=== PATIENT | male | born 1940 | race Caucasian/White ===

== ENCOUNTER 2023-10-03 10:02 | Outpatient (CLI) | payer MEDICARE ==
[2023-10-03] MEDS ORDERED: iohexol 300mg/ml 100ml inj. ONE (11:34)
[2023-10-03 11:40] LABS: ALBUMIN 3.9 G/DL (3.4-5.0); ANION GAP 10 (8-16); BLOOD UREA NITROGEN 22 MG/DL (7-18); BUN/CREATININE RATIO 15.5 (10.0-20.0); CALCIUM 9.3 MG/DL (8.5-10.1); CHLORIDE 104 MMOL/L (99-107); CREATININE 1.42 MG/DL (0.60-1.10); GLUCOSE 147 MG/DL (70-104); POTASSIUM 4.4 MMOL/L (3.5-5.1); SODIUM 140 MMOL/L (135-145); TOTAL CARBON DIOXIDE 26.5 MMOL/L (24-32); eGFR 48 ML/MIN
== END 2023-10-03 23:59 | disposition home or self-care (01) ==
LOC: RAD 10:02
PROVIDERS: ATTEND Family Medicine
DX: N28.1 Cyst of kidney, acquired (principal); K40.90 Unilateral inguinal hernia, without obstruction or gangrene, not specified as recurrent; R31.0 Gross hematuria; Z91.81 History of falling
CPT/HCPCS: 36415; 74178; 80048; J3490; Q9967

== ENCOUNTER 2024-06-07 13:26 | Outpatient (CLI) | payer MEDICARE | END 2024-06-07 23:59 | disposition home or self-care (01) | LOC: RAD 13:26 | PROVIDERS: ATTEND Family Medicine | DX: I51.7 Cardiomegaly (principal); J98.11 Atelectasis; M47.816 Spondylosis without myelopathy or radiculopathy, lumbar region; K40.90 Unilateral inguinal hernia, without obstruction or gangrene, not specified as recurrent; N28.1 Cyst of kidney, acquired; K57.30 Diverticulosis of large intestine without perforation or abscess without bleeding; K44.9 Diaphragmatic hernia without obstruction or gangrene; I25.10 Atherosclerotic heart disease of native coronary artery without angina pectoris; R19.03 Right lower quadrant abdominal swelling, mass and lump | CPT/HCPCS: 74176 ==

== ENCOUNTER 2024-08-29 05:57 | Day surgery (SDC) | payer MEDICARE ==
[2024-08-28 14:34] LABS: BASOPHILS % (AUTO) 0.4 % (0-1); EOSINOPHILS # (AUTO) 0.1 X10'3 (0-0.9); EOSINOPHILS % (AUTO) 0.9 % (0-6); HEMATOCRIT 42.7 % (42.0-52.0); HEMOGLOBIN 14.2 g/dl (14.0-17.9); LYMPHOCYTES # (AUTO) 1.8 X10'3 (1.1-4.8); LYMPHOCYTES % (AUTO) 22.5 % (21-51); MEAN CORPUSCULAR HEMOGLOBIN 33.1 PG (27.0-31.0); MEAN CORPUSCULAR HGB CONC 33.3 g/dL (33.0-36.5); MEAN CORPUSCULAR VOLUME 99.3 FL (78-98); MEAN PLATELET VOLUME 9.1 FL (7.4-10.4); MONOCYTES # (AUTO) 0.5 X10'3 (0-0.9); MONOCYTES % (AUTO) 6.8 % (2-12); NEUTROPHILS # (AUTO) 5.5 X10'3 (1.8-7.7); NEUTROPHILS % (AUTO) 69.4 % (42-75); PLATELET COUNT 239 X10'3 (140-440); RED CELL DISTRIBUTION WIDTH 14.1 % (11.5-14.5)
[2024-08-28 14:43] LABS: ALBUMIN 3.8 G/DL (3.4-5.0); ANION GAP 7 (8-16); BLOOD UREA NITROGEN 33 MG/DL (7-18); BUN/CREATININE RATIO 20.8 (10.0-20.0); CALCIUM 8.9 MG/DL (8.5-10.1); CHLORIDE 104 MMOL/L (99-107); CREATININE 1.59 MG/DL (0.60-1.10); GLUCOSE 219 MG/DL (70-104); POTASSIUM 4.4 MMOL/L (3.5-5.1); SODIUM 141 MMOL/L (135-145); TOTAL CARBON DIOXIDE 29.9 MMOL/L (24-32); eGFR 42 ML/MIN
[2024-08-28 14:46] LABS: APTT 27 SECONDS (22-32); INR 1.1 INR; PROTHROMBIN TIME 11.5 SECONDS (9.0-12.0)
[~2024-08-29] VITALS: Ht 182.9 cm; Wt 100.9 kg
[2024-08-29] VITALS (11 sets, daily range): BP systolic 127–164; BP diastolic 66–96; PULSE 60–61; RESP 12–17; O2SAT 93–98
[2024-08-29] MEDS ORDERED: ceFAZolin 2,000MG in D5W 100mL IV ONE (06:20)
[2024-08-29] MEDS ORDERED: ceFAZolin 2gm in dextrose, iso 50 ML IV ONE (06:20)
[2024-08-29] MEDS ORDERED: ZINC220T3 PO (06:34)
[2024-08-29] MEDS ORDERED: DAPA10TA PO (06:34)
[2024-08-29] MEDS ORDERED: LOSA1TAB39 PO (06:34)
[2024-08-29] MEDS ORDERED: CHOL50CA2 PO (06:34)
[2024-08-29] MEDS ORDERED: NITR0.4T51 SL (06:34)
[2024-08-29] MEDS ORDERED: ATOR20TA66 PO (06:34)
[2024-08-29] MEDS ORDERED: APIX5TAB3 PO (06:34)
[2024-08-29] MEDS: normal saline 1000ml 1,000 ML IV PRN (07:00)
[2024-08-29] MEDS ORDERED: LIDOcaine 1% W/epiNEPHrine 1:100,000 20ml vial ONE (07:49)
[2024-08-29] MEDS ORDERED: midazolam 1 mg/ML 2ml injection ONE (07:49)
[2024-08-29] MEDS ORDERED: ceFAZolin 1000mg inj ONE (07:50)
[2024-08-29] MEDS ORDERED: fentaNYL/PF 50MCG/1 ML 2ML syringe ONE (07:50)
[2024-08-29] MEDS ORDERED: normal saline 1,000 ML IV SCH (10:25)
[2024-08-29] MEDS: vancomycin/NS 1 GM ADD-VANTAGE 250 ML IV ONE (11:34)
[2024-08-29] MEDS ORDERED: AMI200T PO (15:20)
[2024-08-29] MEDS ORDERED: CEPH-585 PO (15:20)
[2024-08-29] MEDS ORDERED: METO-539 PO (15:20)
== END 2024-08-29 16:00 | disposition home or self-care (01) ==
LOC: SSTAY O 05:57
PROVIDERS: ATTEND Internal Medicine Cardiovascular Disease
DX: I49.5 Sick sinus syndrome (principal); I48.91 Unspecified atrial fibrillation; I10 Essential (primary) hypertension; E78.5 Hyperlipidemia, unspecified; I48.0 Paroxysmal atrial fibrillation; E11.9 Type 2 diabetes mellitus without complications; Z98.890 Other specified postprocedural states; Z79.01 Long term (current) use of anticoagulants; Z79.899 Other long term (current) drug therapy; Z96.653 Presence of artificial knee joint, bilateral; Z96.669 Presence of unspecified artificial ankle joint
CPT/HCPCS: 33208; 36415; 71046; 80048; 82948; 85025; 85610; 85730; 93005; 99152; 99153; A4565; A6402; C1785; C1898; J0690; J2250; J3010; J3370; J3490; J7030; Z7610; A6449

== ENCOUNTER 2024-09-23 12:16 | Emergency (ER) | payer MEDICARE ==
[~2024-09-23] VITALS: Ht 182.9 cm; Wt 93.5 kg
[~2024-09-23 12:16] MED LIST: AMI200T PO; APIX5TAB3 PO; ATOR20TA66 PO; CHOL50CA2 PO; DAPA10TA PO; LOSA1TAB39 PO; METO-539 PO; NITR0.4T51 SL; ZINC220T3 PO
[2024-09-23] MEDS: LIDOcaine/epinephrine/tetracaine TOPICAL sol 3 ML syringe TOP ONE (13:24)
[2024-09-23] MEDS: TETanus/Pertussis (Acell)/Diphther VAC/PF (Tdap-Adult) 0.5ml syringe IMVAC ONE (13:45)
[2024-09-23] MEDS ORDERED: CEPH-585 PO (13:49)
[2024-09-23 14:56] VITALS: BP 118/74; PULSE 86; RESP 16; TEMP 98.8; O2SAT 98
== END 2024-09-23 14:58 | disposition home or self-care (01) ==
LOC: ER 12:17
DX: J34.0 Abscess, furuncle and carbuncle of nose (principal); S00.81XA Abrasion of other part of head, initial encounter; W19.XXXA Unspecified fall, initial encounter; Y93.89 Activity, other specified; Y92.89 Other specified places as the place of occurrence of the external cause; Y99.8 Other external cause status; Z88.5 Allergy status to narcotic agent
CPT/HCPCS: 90715; 99283; A6402; G0008; J3490; 90471; A6449

== ENCOUNTER 2024-10-17 07:00 | Day surgery (SDC) | payer MEDICARE ==
[2024-10-15 12:35] LABS: BASOPHILS % (AUTO) 0.7 % (0-1); EOSINOPHILS # (AUTO) 0.1 X10'3 (0-0.9); EOSINOPHILS % (AUTO) 1.7 % (0-6); HEMATOCRIT 42.4 % (42.0-52.0); HEMOGLOBIN 14.4 g/dl (14.0-17.9); LYMPHOCYTES # (AUTO) 1.2 X10'3 (1.1-4.8); LYMPHOCYTES % (AUTO) 18.2 % (21-51); MEAN CORPUSCULAR HEMOGLOBIN 33.1 PG (27.0-31.0); MEAN CORPUSCULAR HGB CONC 33.9 g/dL (33.0-36.5); MEAN CORPUSCULAR VOLUME 97.7 FL (78-98); MEAN PLATELET VOLUME 8.3 FL (7.4-10.4); MONOCYTES # (AUTO) 0.5 X10'3 (0-0.9); MONOCYTES % (AUTO) 8.1 % (2-12); NEUTROPHILS # (AUTO) 4.8 X10'3 (1.8-7.7); NEUTROPHILS % (AUTO) 71.3 % (42-75); PLATELET COUNT 276 X10'3 (140-440); RED BLOOD COUNT 4.34 X10'6 (4.70-6.10); RED CELL DISTRIBUTION WIDTH 14.4 % (11.5-14.5); WHITE BLOOD COUNT 6.8 X10'3 (4.5-11.0)
[2024-10-15 12:43] LABS: ALBUMIN 3.8 G/DL (3.4-5.0); ANION GAP 8 (8-16); BLOOD UREA NITROGEN 36 MG/DL (7-18); BUN/CREATININE RATIO 20.7 (10.0-20.0); CALCIUM 9.2 MG/DL (8.5-10.1); CHLORIDE 104 MMOL/L (99-107); CREATININE 1.74 MG/DL (0.60-1.10); GLUCOSE 207 MG/DL (70-104); POTASSIUM 4.5 MMOL/L (3.5-5.1); SODIUM 140 MMOL/L (135-145); TOTAL CARBON DIOXIDE 28.2 MMOL/L (24-32); eGFR 38 ML/MIN
[2024-10-15 12:46] LABS: INR 1.2 INR
[2024-10-15 13:11] LABS: PROTHROMBIN TIME 12.2 SECONDS (9.0-12.0)
[~2024-10-17] VITALS: Ht 182.9 cm; Wt 97.5 kg
[~2024-10-17 07:00] MED LIST changes: +CEPH-585 PO
--- NOTE | 2024-10-17 07:23 | ELECTROCARDIOGRAPH REPORT ---
[facility] Test Date: 2024-10-17 Test Time: 07:21:00 Pat Name: FLEX MOJICA Department: [facility] Patient ID: [facility]-[id number] Room: Gender: M Main Line Assembler: FERNANDO : 1940 Requested By: CARLOS SHIELDS Order Number: [id number] Reading MD: Dr. FELICIA Shields Measurements Intervals [place] Rate: 62 P: 254 [place]: 34 QRS: -76 QRSD: 187 T: 85 QT: 512 QTc: 520 Interpretive Statements Ventricular-paced rhythm No further analysis attempted due to paced rhythm Electronically Signed On 10-19-2024 15:05:[address] FELICIA Shields Please click the below link to view image of tracing.
[2024-10-17] MEDS ORDERED: LORazepam 0.5 MG tablet PO ONE (07:25)
[2024-10-17] MEDS ORDERED: MIDAZolam 1mg/ml 10ml vial IV ONE (07:25)
[2024-10-17] MEDS ORDERED: amiodarone 150mg/dext, iso-os 100 ML IV ONE (07:25)
[2024-10-17] MEDS ORDERED: atropine 0.1mg/ml 10ml syringe IV ONE (07:25)
[2024-10-17] MEDS ORDERED: morphine 10mg/ml inj. IV ONE (07:25)
[2024-10-17 07:30] VITALS: BP 132/78; PULSE 60; RESP 16; TEMP 97.1; O2SAT 96
[2024-10-17] MEDS ORDERED: AMIO200T72 PO (07:32)
[2024-10-17] MEDS ORDERED: METO-395 PO (07:32)
[2024-10-17] MEDS: diphenhydrAMINE 25mg capsule PO ONE (08:11)
[2024-10-17] MEDS: normal saline 1000ml 1,000 ML IV SCH (08:11)
[2024-10-17] MEDS ORDERED: amiodarone 50MG/ML inj IV ONE (09:10)
[2024-10-17] MEDS ORDERED: atropine 0.1mg/ml 10ml syringe ONE (09:10)
[2024-10-17] MEDS ORDERED: midazolam 1 mg/ML 2ml injection ONE ×2 (09:10→09:48)
[2024-10-17] MEDS ORDERED: fentaNYL/PF 50MCG/1 ML 2ML syringe ONE (09:10)
[2024-10-17 10:10] VITALS: BP 128/85; PULSE 80; RESP 16; O2SAT 96
[2024-10-17 10:20] VITALS: BP 117/76; PULSE 80; RESP 12; O2SAT 93
--- NOTE | 2024-10-17 10:26 | CARDIOLOGY REPORT ---
DATE OF SERVICE: 10/17/2024 DICTATING PHYSICIAN: FELICIA Nunn MD ELECTRICAL CARDIOVERSION PRIMARY PHYSICIAN: Dr. Downey. CARDIAC REHABILITATION SPECIALIST: FELICIA Nunn MD INDICATION: The patient is an 84-year-old male with a history of diabetes, hypertension, hyperlipidemia as well as aortic aneurysm, aortic stenosis, paroxysmal atrial fibrillation, sick sinus syndrome status post PPM. The patient had a permanent pacemaker implantation on 08/27, found to be in atrial fibrillation. The patient was put on amiodarone, Eliquis and metoprolol. After discussing the risks, benefits, and alternative options, the patient is undergoing electrical cardioversion. Risks, benefits, alternative options discussed. Informed consent was obtained. DESCRIPTION OF PROCEDURE: Anterior and posterior patches were used using biphasic electrical energy 150 x1 converted to normal sinus rhythm. The patient and then pacing was increased to 80 per minute. It will be reduced to 60 during followup. IMPRESSION: An 84-year-old male with sick sinus syndrome with PAF who underwent pacemaker implantation a few months ago and now underwent electrical cardioversion to normal sinus rhythm. RECOMMENDATIONS: * Continue amiodarone, Eliquis and metoprolol. * Recommend diet, weight loss and exercise program. FELICIA Nunn MD TID: [id number] RECEIPT: [id number] NASRA/MELISSA/GUICHO MTDD
[2024-10-17 10:30] VITALS: BP 116/75; PULSE 80; RESP 16; O2SAT 95
--- NOTE | 2024-10-17 10:39 | ELECTROCARDIOGRAPH REPORT ---
[facility] Test Date: 2024-10-17 Test Time: 10:37:20 Pat Name: FLEX MOJICA Department: [facility] Patient ID: [id number] Room: Gender: M Intranet Specialist: FERNANDO : 1940 Requested By: CARLOS SHIELDS Order Number: [id number] Reading MD: Dr. FELICIA Shields Measurements Intervals [place] Rate: 80 P: 98 [place]: 182 QRS: -80 QRSD: 187 T: 85 QT: 491 QTc: 567 Interpretive Statements Atrial-ventricular dual-paced rhythm No further analysis attempted due to paced rhythm Electronically Signed On 10-19-2024 15:06:[address] FELICIA Shields Please click the below link to view image of tracing.
[2024-10-17 10:45] VITALS: BP 120/82; PULSE 80; RESP 17; O2SAT 95
[2024-10-17 11:00] VITALS: BP 117/78; PULSE 80; RESP 15; O2SAT 95
== END 2024-10-17 11:05 | disposition home or self-care (01) ==
LOC: SSTAY O 07:00
PROVIDERS: ATTEND Internal Medicine Cardiovascular Disease
DX: I48.0 Paroxysmal atrial fibrillation (principal); I49.5 Sick sinus syndrome; I10 Essential (primary) hypertension; E78.5 Hyperlipidemia, unspecified; E11.9 Type 2 diabetes mellitus without complications; I35.0 Nonrheumatic aortic (valve) stenosis; Z95.0 Presence of cardiac pacemaker; Z79.899 Other long term (current) drug therapy; Z98.890 Other specified postprocedural states
CPT/HCPCS: 36415; 80048; 82948; 85025; 85610; 92960; 93005; J2250; J3010; J7030; Q0163; Z7610; 99152; J0282; J0461